=== PATIENT | male | born 1955 | race African-American/Black ===

== ENCOUNTER 2019-06-01 04:53 | Emergency (ER) | payer MEDICARE, MEDICAID ==
[~2019-06-01] VITALS: Ht 167.6 cm; Wt 91.2 kg
[~2019-06-01 04:53] MED LIST: ATOR20TA50 PO; LEV50T PO; LOSA-69 PO; OLAN20TA13 PO; OMEP20TA PO
[2019-06-01 05:18] VITALS: BP 145/83
== END 2019-06-01 08:04 | disposition home or self-care (01) ==
LOC: ER 04:53
DX: S16.1XXA Strain of muscle, fascia and tendon at neck level, initial encounter (principal); S39.012A Strain of muscle, fascia and tendon of lower back, initial encounter; R51 Headache; I12.9 Hypertensive chronic kidney disease with stage 1 through stage 4 chronic kidney disease, or unspecified chronic kidney disease; N18.9 Chronic kidney disease, unspecified; J45.909 Unspecified asthma, uncomplicated; Z88.0 Allergy status to penicillin; Z79.899 Other long term (current) drug therapy; V43.62XA Car passenger injured in collision with other type car in traffic accident, initial encounter; Y93.89 Activity, other specified; Y92.410 Unspecified street and highway as the place of occurrence of the external cause; Y99.8 Other external cause status
CPT/HCPCS: 70450; 72125; 72128